=== PATIENT | male | born 1945 | race Caucasian/White ===

== ENCOUNTER 2019-08-22 07:43 | Day surgery (SDC) | payer MEDICARE ==
[~2019-08-22] VITALS: Ht 175.3 cm; Wt 102.1 kg
[2019-08-22] VITALS (9 sets, daily range): BP systolic 103–146; BP diastolic 49–79
[~2019-08-22 07:43] MED LIST: AMLO2.5T2 PO; DICY10CA88 PO; DOCU-28 PO; HYDR-4383 PO; HYOS-13 PO; OMEP20CA15 PO; OXYB5TAB16 PO; PROB500T34 PO; SERT50TA PO; TAMS0.4C32 PO
[2019-08-22] MEDS ORDERED: diphenhydrAMINE 25mg capsule PO PRN (08:10)
[2019-08-22] MEDS ORDERED: normal saline 1,000 ML IV SCH (08:10)
[2019-08-22] MEDS ORDERED: LISI-600 PO (08:22)
[2019-08-22] MEDS ORDERED: CELE200C PO (08:26)
[2019-08-22] MEDS ORDERED: midazolam 2 mg/2 ml injection ONE ×3 (08:59→09:37)
[2019-08-22] MEDS ORDERED: fentaNYL/PF 50MCG/1 ML 2ML syringe ONE ×2 (08:59→09:37)
[2019-08-22] MEDS ORDERED: iohexol 350MG/ML 100ml bottle IV ONE (09:00)
[2019-08-22] MEDS ORDERED: LIDOcaine 1% (10mg/ml)w/preservative injection 20ml MDV ONE (09:00)
[2019-08-22] MEDS ORDERED: iohexol 350 MG/ML 50ML vial IV ONE ×2 (09:00→09:58)
[2019-08-22 09:21] LABS: BASOPHILS % (AUTO) 0.4 % (0-1); EOSINOPHILS # (AUTO) 0.1 X10'3 (0-0.9); EOSINOPHILS % (AUTO) 2.7 % (0-6); HEMOGLOBIN 16.8 g/dl (14.0-17.9); LYMPHOCYTES # (AUTO) 1.2 X10'3 (1.1-4.8); LYMPHOCYTES % (AUTO) 27.6 % (21-51); MEAN CORPUSCULAR HEMOGLOBIN 29.4 PG (27.0-31.0); MEAN CORPUSCULAR HGB CONC 34.2 g/dL (33.0-36.5); MONOCYTES # (AUTO) 0.3 X10'3 (0-0.9); MONOCYTES % (AUTO) 7.3 % (2-12); NEUTROPHILS # (AUTO) 2.8 X10'3 (1.8-7.7); PLATELET COUNT 128 X10'3 (140-440); RED CELL DISTRIBUTION WIDTH 14.3 % (11.5-14.5); WHITE BLOOD COUNT 4.5 X10'3 (4.5-11.0)
[2019-08-22 09:22] LABS: ALBUMIN 4.5 G/DL (3.4-5.0); ANION GAP 9 (8-16); BLOOD UREA NITROGEN 25 MG/DL (7-18); BUN/CREATININE RATIO 21.9 (5.4-32.0); CALCIUM 9.2 MG/DL (8.5-10.1); CHLORIDE 108 MMOL/L (99-107); CREATININE 1.14 MG/DL (0.60-1.10); GLUCOSE 89 MG/DL (70-104); MAGNESIUM 2.1 MG/DL (1.5-2.4); POTASSIUM 3.8 MMOL/L (3.5-5.1); SODIUM 144 MMOL/L (135-145); TOTAL CARBON DIOXIDE 26.8 MMOL/L (24-32); eGFR 63 ML/MIN
[2019-08-22] MEDS ORDERED: diphenhydrAMINE 50 mg/ml inj ONE (09:35)
[2019-08-22] MEDS ORDERED: heparin 1,000unit/ml 10ml vial 10 ML ONE (09:50)
[2019-08-22] MEDS ORDERED: clopidogrel 300mg tablet ONE (10:04)
== END 2019-08-22 13:35 | disposition home or self-care (01) ==
LOC: SSTAY O 07:43 → MED 3N 07:53 → SSTAY O 13:35
PROVIDERS: ATTEND Internal Medicine Cardiovascular Disease
DX: I25.10 Atherosclerotic heart disease of native coronary artery without angina pectoris (principal); I25.2 Old myocardial infarction; G47.33 Obstructive sleep apnea (adult) (pediatric); E78.00 Pure hypercholesterolemia, unspecified; K21.9 Gastro-esophageal reflux disease without esophagitis; I10 Essential (primary) hypertension; M19.90 Unspecified osteoarthritis, unspecified site; F41.9 Anxiety disorder, unspecified; Z98.890 Other specified postprocedural states; Z80.1 Family history of malignant neoplasm of trachea, bronchus and lung; Z86.73 Personal history of transient ischemic attack (TIA), and cerebral infarction without residual deficits; Z79.899 Other long term (current) drug therapy; Z72.89 Other problems related to lifestyle
CPT/HCPCS: 80048; 83735; 85025; 85610; 93005; 93458; 99152; 99153; C1725; C1769; C1874; C1894; C9600; J1200; J1644; J2001; J2250; J3010; Q9967; A4620; A6258; C1751; C1760

== ENCOUNTER 2022-06-17 15:49 | Emergency (ER) | payer MEDICARE ==
[~2022-06-17] VITALS: Ht 175.3 cm; Wt 100.0 kg
[~2022-06-17 15:49] MED LIST changes: +APIX5TAB3 PO; +ATOR40TA72 PO; +CELE200C PO; -DICY10CA88 PO; -DOCU-28 PO; -HYDR-4383 PO; -HYOS-13 PO; +IRBE300T18 PO; -OXYB5TAB16 PO; -TAMS0.4C32 PO
[2022-06-17 16:22] LABS: BASOPHILS % (AUTO) 0.5 % (0-1); EOSINOPHILS # (AUTO) 0.1 X10'3 (0-0.9); EOSINOPHILS % (AUTO) 0.9 % (0-6); HEMATOCRIT 48.9 % (42.0-52.0); HEMOGLOBIN 16.3 g/dl (14.0-17.9); LYMPHOCYTES # (AUTO) 0.8 X10'3 (1.1-4.8); LYMPHOCYTES % (AUTO) 11.8 % (21-51); MEAN CORPUSCULAR HEMOGLOBIN 26.2 PG (27.0-31.0); MEAN CORPUSCULAR HGB CONC 33.3 g/dL (33.0-36.5); MEAN CORPUSCULAR VOLUME 78.7 FL (78-98); MEAN PLATELET VOLUME 8.4 FL (7.4-10.4); MONOCYTES # (AUTO) 0.4 X10'3 (0-0.9); MONOCYTES % (AUTO) 6.5 % (2-12); NEUTROPHILS # (AUTO) 5.2 X10'3 (1.8-7.7); NEUTROPHILS % (AUTO) 80.3 % (42-75); PLATELET COUNT 122 X10'3 (140-440); RED BLOOD COUNT 6.21 X10'6 (4.70-6.10); RED CELL DISTRIBUTION WIDTH 17.8 % (11.5-14.5); WHITE BLOOD COUNT 6.4 X10'3 (4.5-11.0)
[2022-06-17] MEDS ORDERED: morphine 4 MG/ML inj SYRINge IV ONE (16:25)
[2022-06-17] MEDS ORDERED: ondansetron/PF 4mg/2ml inj IV ONE (16:25)
[2022-06-17 16:33] LABS: APTT 32 SECONDS (22-32)
[2022-06-17 16:34] LABS: ALANINE AMINOTRANSFERASE 35 U/L (12-78); ALBUMIN 3.8 G/DL (3.4-5.0); ALBUMIN/GLOBULIN RATIO 1.3 (1.1-1.5); ALKALINE PHOSPHATASE 78 IU/L (46-116); ANION GAP 7 (8-16); ASPARTATE AMINO TRANSFERASE 38 U/L (10-37); BILIRUBIN,TOTAL 0.9 MG/DL (0.1-1.0); BLOOD UREA NITROGEN 20 MG/DL (7-18); BUN/CREATININE RATIO 16.7 (5.4-32.0); CALCIUM 8.7 MG/DL (8.5-10.1); CHLORIDE 107 MMOL/L (99-107); GLUCOSE 146 MG/DL (70-104); SODIUM 139 MMOL/L (135-145); TOTAL PROTEIN 6.8 G/DL (6.4-8.2); eGFR 59 ML/MIN
[2022-06-17 16:48] VITALS: BP 147/121
--- NOTE | 2022-06-17 16:55 | NUR ---
DIMENSIONAL ENGINEER STEPHINE AT BEDSIDE DISCUSSING THE POC WITH PT AND .
[2022-06-17] MEDS ORDERED: bacitracin 15gm ointment TP ONE (17:00)
== END 2022-06-17 18:25 | disposition home or self-care (01) ==
LOC: ER 15:50
DX: S00.81XA Abrasion of other part of head, initial encounter (principal); S00.31XA Abrasion of nose, initial encounter; S09.90XA Unspecified injury of head, initial encounter; I10 Essential (primary) hypertension; E78.00 Pure hypercholesterolemia, unspecified; M19.90 Unspecified osteoarthritis, unspecified site; Z91.09 Other allergy status, other than to drugs and biological substances; W19.XXXA Unspecified fall, initial encounter; Y93.89 Activity, other specified; Y92.89 Other specified places as the place of occurrence of the external cause; Y99.8 Other external cause status
CPT/HCPCS: 36415; 70450; 70486; 73030; 73090; 80053; 85025; 85610; 85730; 96374; 96375; 99285; J2270; J2405; 72125; A6449; J7060